=== PATIENT | female | born 1970 | race Caucasian/White ===

== ENCOUNTER 2018-07-03 17:25 | Emergency (ER) | payer MEDICARE, MEDICAID ==
[~2018-07-03 17:25] MED LIST: ARIP10TA9 PO; DIVA500T2 PO
[2018-07-03 17:39] VITALS: BP 114/79
[2018-07-03 18:24] LABS: BILIRUBIN,URINE NEG (NEG); CLARITY,URINE HAZY; COLOR,URINE YELLOW; GLUCOSE,URINE NEG (NEG); NITRITE,URINE NEG (NEG); UROBILINOGEN,URINE 1 mg/dL (0.2 mg/dL)
[2018-07-03 18:25] LABS: BACTERIA,URINE FEW /HPF (0-FEW); RBC,URINE OCC /HPF (0-2); SQUAMOUS EPITHELIAL CELL,UR FEW /LPF; U PREG PATIENT NEGATIVE (NEG)
[2018-07-03] MEDS ORDERED: AZITHROMYCIN 250 MG TABLET. PO ONE (18:30)
[2018-07-03] MEDS ORDERED: cefTRIAXone IM 1 GM VIAL IM ONE (18:30)
[2018-07-03] MEDS ORDERED: MUPI15CR TP (18:33)
--- NOTE | 2018-07-03 21:34 | ED.ADGEN ---
Past History Past Medical History: Bipolar Past Surgical History: , Tubal ligation, Other Alcohol Use: None Drug Use: Methamphetamine Adult General Chief Complaint Chief Complaint Concern for possible STD exposure HPI HPI Patient is a 48-year-old female who presents with concern for possible STD exposure. Patient reports inflamed pelvic lymph nodes, occasional vaginal discharge in the past 2 months. Denies acute symptoms or complaints. Patient has not follow-up with a primary care doctor at [facility]. She denies acute escalation or change in symptoms. Patient also expresses concern for possible MRSA exposure. Patient has sporadic macules over left forearm. No fevers chills, nausea vomiting or sweats. History of methamphetamine abuse.[] Review of Systems Review of Systems Review symptoms as per history of present illness. All other review symptoms are negative. [] All other systems were reviewed and found to be within normal limits, except as documented in this note. Current Medications Current Medications Current Medications Medications (Trade) Dose Ordered Sig/Chrissy Start Time Stop Time Status Last Admin Dose Admin Azithromycin (Zithromax) 1,000 mg 1X ONCE 07/03/18 18:30 07/03/18 18:31 DC 07/03/18 18:38 1,000 MG Ceftriaxone Sodium (Rocephin Im) 1 gm 1X ONCE 07/03/18 18:30 10 18:31 DC 07/03/18 18:41 1 GM Allergies Allergies Allergies Coded Allergies Type Severity Reaction Last Updated Verified Sulfa (Sulfonamide Antibiotics) Allergy Intermediate RASH 09/20/14 Yes Physical Exam Physical Exam Constitutional: Well developed, well nourished, no acute distress, non-toxic appearance. [] HENT: Normocephalic, atraumatic, bilateral external ears normal, oropharynx moist, no oral exudates, nose normal. [] Eyes: PERRLA, EOMI, conjunctiva normal, no discharge. [] Neck: Normal range of motion, no tenderness, supple, no stridor. [] Cardiovascular:Heart rate regular rhythm. [] Lungs & Thorax: Bilateral breath sounds clear to auscultation [] Abdomen: Bowel sounds normal, soft, no tenderness. [] : External genitalia, normal, no lesions, cervix, normal, scant white discharge and cervix, no tenderness or adnexal masses.[] Skin: Two macules over left forearm with scabbing, representing possible early MRSA section. [] Neurologic: Alert and oriented X 3, normal motor function, normal sensory function, no focal deficits noted. [] Psychologic: Affect normal, judgement normal, mood normal. [] Current Patient Data Vital Signs Vital Signs Date Time Temp Pulse Resp B/P (MAP) Pulse Ox O2 Delivery O2 Flow Rate FiO2 07/03/18 17:39 98.2 86 18 99 Room Air Lab Results Laboratory Tests Test 07/03/18 17:42 Urine Collection Type Unknown Urine Color Yellow Urine Clarity Hazy Urine pH 7.5 Urine Specific [place] 1.015 Urine Protein Neg (NEG-TRACE) Urine Glucose (UA) Neg mg/dL (NEG) Urine Ketones (Stick) Neg mg/dL (NEG) Urine Blood Neg (NEG) Urine Nitrite Neg (NEG) Urine Bilirubin Neg (NEG) Urine Urobilinogen Dipstick 1 mg/dL (0.2 mg/dL) Urine Leukocyte Esterase Neg (NEG) Urine RBC Occ /HPF (0-2) Urine WBC 1-4 /HPF (0-4) Urine Squamous Epithelial Cells Few /LPF Urine Bacteria Few /HPF (0-FEW) Urine Mucus Slight /LPF Urine Test Negative (NEG) EKG EKG [] Radiology/Procedures Radiology/Procedures [] Course & Med Decision Making Course & Med Decision Making Pertinent Labs and Imaging studies reviewed. (See chart for details) [ with essentially unremarkable exam. Recommend following up with [facility], PCP or [facility] for definitive and comprehensive STD screening. Patient provided empiric antibiotics due to recent exposure and suggestion of symptoms. Specimens were not obtained due suspicious of being low yield studies results. Patient verbalizes understanding agreement with need for additional outpatient testing.] Final Impression Final Impression [1. Exposure to STD 2. MRSA left forearm Dragon Disclaimer Dragon Disclaimer This electronic medical record was generated, in whole or in part, using a voice recognition dictation system. BIANCA GURROLA DO Jul 03, 2018 21:34
== END 2018-07-03 18:55 | disposition home or self-care (01) ==
LOC: ER 17:25
DX: Z20.2 Contact with and (suspected) exposure to infections with a predominantly sexual mode of transmission (principal); A49.02 Methicillin resistant Staphylococcus aureus infection, unspecified site; F31.9 Bipolar disorder, unspecified; Z88.2 Allergy status to sulfonamides
CPT/HCPCS: 81001; 81025; 96372; 99284; J0456; J0696